=== PATIENT | male | born 1975 | race Caucasian/White ===

== ENCOUNTER 2018-05-18 16:36 | Emergency (ER) | payer OTHER ==
[~2018-05-18] VITALS: Ht 167.6 cm; Wt 132.1 kg
[2018-05-18 16:50] VITALS: TEMP 36.9; Ht 167.6 cm; Wt 132.1 kg
--- NOTE | 2018-05-18 17:09 | DIAGNOSTIC IMAGING REPORT ---
CHEST ONE VIEW PORTABLE CLINICAL HISTORY: Chest pain. COMPARISON STUDY: No previous studies for comparison. FINDINGS: There is evidence for a suspected distal right clavicular resection. Lung volumes are normal. No pneumothorax or pleural effusion is noted. There is no consolidation or evidence for pulmonary edema. Cardiac size is within normal limits. Mediastinal contours are unremarkable. IMPRESSION: No acute cardiopulmonary findings. Electronically signed by: Jay Boston M.D. 05/18/2018 5:08 PM Dictated Date/Time: 05/18/2018 5:07 PM
[2018-05-18] MEDS ORDERED: OPTIRAY 320 IV PRN (17:15)
--- NOTE | 2018-05-18 17:19 | EMERGENCY ROOM VISIT NOTE ---
History Report prepared by Mak: Norma Baxter Under the Supervision of: Dr. Scott Juares M.D. First contact with patient: 16:37 Chief Complaint: SHORTNESS OF BREATH Stated Complaint: DIZZY, SOB, NECK PIAN History of Present Illness The patient is a 42 year old male who presents to the Emergency Room with complaints of constant SOB beginning yesterday. EMS reports they brought the patient from [place], where he arrived 2 hours ago following an admittance to [facility] yesterday evening following a suicide attempt. They note the patient, who is schizophrenic and has a history of suicide attempts, heard a voice telling him to kill himself yesterday. EMS reports he used a dog leash to hang himself from a doorway. They state the patient's feet were off the ground for a time, before he lost consciousness and fell to the ground. The exact time of the hanging is unclear, as the patient does not remember. The patient reports his SOB began following his suicide attempt, as well as a headache, mild chest pain, dizziness, and blurred vision. He notes he did not have these symptoms before the attempt. The patient denies nausea or double vision. He also denies current suicidal or homicidal ideations, and notes he feels depressed. The patient states he is not hearing as many voices as yesterday. He reports he takes Abilify 50 mg and another medication he cannot remember the name of, prescribed by [facility] in [place]. Source of History: patient Onset: yesterday Position: chest Quality: other (SOB) Timing: constant Associated Symptoms: + headache, + chest pain (mild), No nausea Note: Associated symptom: dizziness, blurred vision, feeling depressed. Denies: double vision, suicidal or homicidal ideations Review of Systems See HPI for pertinent positives and negatives. A total of ten systems were reviewed and were otherwise negative. Past Medical & Surgical Medical Problems: (1) Schizophrenia Family History No pertinent family history stated. Social History Smoking Status: Never Smoker Marital Status: Housing Status: lives with significant other Current/Historical Medications Scheduled Aripiprazole (Abilify), 15 MG PO DAILY Cyclobenzaprine Hcl (Flexeril), 10 MG PO TID Gabapentin (Neurontin), 300 MG PO TID Lamotrigine (Lamictal), 100 MG PO DAILY Sumatriptan Succinate (Imitrex), 50 MG PO PRN Trazodone Hcl (Trazodone), 50 MG PO HS Scheduled PRN Ibuprofen (Motrin), 600 MG PO Q6H PRN for Pain Meclizine Hcl (Meclizine Hcl), 25 MG PO TID PRN for Dizziness Allergies Coded Allergies: No Known Allergies (Unverified , 05/18/18) Physical Exam Vital Signs Date Time Temp Pulse Resp B/P (MAP) Pulse Ox O2 Delivery O2 Flow Rate FiO2 05/18/18 23:28 78 18 146/99 99 Room Air 05/18/18 21:39 72 18 148/92 99 Room Air 05/18/18 19:18 79 18 135/78 100 Room Air 05/18/18 18:29 71 18 152/89 98 Room Air 05/18/18 18:26 98 Room Air 05/18/18 16:58 77 05/18/18 16:50 36.9 79 18 166/110 99 Room Air 05/18/18 16:42 98 Room Air Physical Exam GENERAL: Awake, alert, well-appearing, in no distress HENT: Normocephalic, atraumatic. Oropharynx unremarkable. EYES: Normal conjunctiva. Sclera non-icteric. NECK: Supple. No nuchal rigidity. FROM. No JVD. RESPIRATORY: Clear to auscultation. CARDIAC: Regular rate, normal rhythm. Extremities warm and well perfused. Pulses equal. ABDOMEN: Soft, non-distended. No tenderness to palpation. No rebound or guarding. No masses. RECTAL: Deferred. MUSCULOSKELETAL: Chest examination reveals no tenderness. The back is symmetrical on inspection without obvious abnormality. There is no CVA tenderness to palpation. No joint edema. LOWER EXTREMITIES: Calves are equal size bilaterally and non-tender. No edema. No discoloration. NEURO: Normal sensorium. No sensory or motor deficits noted. Apparent difficulty with finger to nose, albeit does not correct even when touching his cheek. SKIN: No rash or jaundice noted. Medical Decision & Procedures ER Provider Diagnostic Interpretation: Radiology results as stated below per my review and radiologist interpretation: CHEST ONE VIEW PORTABLE CLINICAL HISTORY: Chest pain. COMPARISON STUDY: No previous studies for comparison. FINDINGS: There is evidence for a suspected distal right clavicular resection. Lung volumes are normal. No pneumothorax or pleural effusion is noted. There is no consolidation or evidence for pulmonary edema. Cardiac size is within normal limits. Mediastinal contours are unremarkable. IMPRESSION: No acute cardiopulmonary findings. Electronically signed by: Jay Boston M.D. 05/18/2018 5:08 PM Dictated Date/Time: 05/18/2018 5:07 PM NECK ANGIO WITH CONTRAST, ANGIOGRAPHY HEAD COMBO CLINICAL HISTORY: 42 years-old Male with presents with acute blurred vision and dizziness status post attempted hanging.. COMPARISON STUDY: CTA head of same day TECHNIQUE: Following the IV administration of 115 of Optiray 320, CT angiogram of the head and neck was performed from the aortic arch to the skull base. Images are reviewed in the axial, sagittal, and coronal planes. Additional noncontrast head CT also obtained. 3-D MIPS images are created and assessed. IV contrast was administered without complication. All measurements were calculated based on NASCET criteria. A dose lowering technique was utilized adhering to the principles of ALARA. CT DOSE: 1049.50 mGy.cm FINDINGS: CT HEAD: No acute intracranial hemorrhage, midline shift, territorial infarct, abnormal extra-axial collections, hydrocephalus or intracranial mass. No calvarial fracture. Mastoid air cells and middle ear cavities are generally clear. Soft tissues and orbits are within normal limits. CTA HEAD AND NECK: Three-vessel morphology of the aortic arch. The imaged bilateral subclavian arteries appear patent. The bilateral common and internal carotid arteries are widely patent and within normal limits. The bilateral middle and anterior cerebral arteries are widely patent. Anterior communicating artery is patent and within normal limits. Cerebral venous sinuses appear patent and within normal limits. The vertebral arteries appear to be codominant and are widely patent and unremarkable. The vertebral arterial dissection. The basilar and bilateral posterior cerebral arteries are widely patent and unremarkable. There is no aneurysm, dissection, high-grade stenosis or proximal branch occlusion. Imaged lung apices appear clear. Soft tissues and thyroid appear to be within normal limits. Prominent nonenlarged level 1 lymph nodes measure up to 1 cm in short axis. Mild prominence about the bilateral palatine tonsils. Airway appears patent. Mild loss with complete opacification of the right maxillary sinus. Moderate mucosal thickening of the left maxillary sinus. The remaining paranasal sinuses are generally clear. Periapical cyst with cortical dehiscence involves the right maxillary first bicuspid, image 244 series 4. No associated inflammatory changes or soft tissue abscess. Multiple additional dental caries are noted. Mild intervertebral disc space narrowing at C6-C7 with posterior disc osteophyte complex formation at this level. No acute cervical spine fracture or subluxation identified. Transversely oriented lucency about the left hyoid bone, image 157 series 4 may reflect acute nondisplaced fracture. IMPRESSION: 1. Unremarkable CTA of the head and neck without aneurysm, dissection, high-grade stenosis or proximal branch occlusion. 2. Lucency of the left hyoid bone suggests acute nondisplaced fracture considering patient history of recent hanging injury. 3. Paranasal sinus disease and multifocal odontogenic disease as detailed above. 4. Mildly enlarged level I lymph nodes are nonspecific and may be reactive. The above report was generated using voice recognition software. It may contain grammatical, syntax or spelling errors. Electronically signed by: Robe Beck M.D. 05/18/2018 7:22 PM Dictated Date/Time: 05/18/2018 7:08 PM NECK ANGIO WITH CONTRAST, ANGIOGRAPHY HEAD COMBO CLINICAL HISTORY: 42 years-old Male with presents with acute blurred vision and dizziness status post attempted hanging.. COMPARISON STUDY: CTA head of same day TECHNIQUE: Following the IV administration of 115 of Optiray 320, CT angiogram of the head and neck was performed from the aortic arch to the skull base. Images are reviewed in the axial, sagittal, and coronal planes. Additional noncontrast head CT also obtained. 3-D MIPS images are created and assessed. IV contrast was administered without complication. All measurements were calculated based on NASCET criteria. A dose lowering technique was utilized adhering to the principles of ALARA. CT DOSE: 1049.50 mGy.cm FINDINGS: CT HEAD: No acute intracranial hemorrhage, midline shift, territorial infarct, abnormal extra-axial collections, hydrocephalus or intracranial mass. No calvarial fracture. Mastoid air cells and middle ear cavities are generally clear. Soft tissues and orbits are within normal limits. CTA HEAD AND NECK: Three-vessel morphology of the aortic arch. The imaged bilateral subclavian arteries appear patent. The bilateral common and internal carotid arteries are widely patent and within normal limits. The bilateral middle and anterior cerebral arteries are widely patent. Anterior communicating artery is patent and within normal limits. Cerebral venous sinuses appear patent and within normal limits. The vertebral arteries appear to be codominant and are widely patent and unremarkable. The vertebral arterial dissection. The basilar and bilateral posterior cerebral arteries are widely patent and unremarkable. There is no aneurysm, dissection, high-grade stenosis or proximal branch occlusion. Imaged lung apices appear clear. Soft tissues and thyroid appear to be within normal limits. Prominent nonenlarged level 1 lymph nodes measure up to 1 cm in short axis. Mild prominence about the bilateral palatine tonsils. Airway appears patent. Mild loss with complete opacification of the right maxillary sinus. Moderate mucosal thickening of the left maxillary sinus. The remaining paranasal sinuses are generally clear. Periapical cyst with cortical dehiscence involves the right maxillary first bicuspid, image 244 series 4. No associated inflammatory changes or soft tissue abscess. Multiple additional dental caries are noted. Mild intervertebral disc space narrowing at C6-C7 with posterior disc osteophyte complex formation at this level. No acute cervical spine fracture or subluxation identified. Transversely oriented lucency about the left hyoid bone, image 157 series 4 may reflect acute nondisplaced fracture. IMPRESSION: 1. Unremarkable CTA of the head and neck without aneurysm, dissection, high-grade stenosis or proximal branch occlusion. 2. Lucency of the left hyoid bone suggests acute nondisplaced fracture considering patient history of recent hanging injury. 3. Paranasal sinus disease and multifocal odontogenic disease as detailed above. 4. Mildly enlarged level I lymph nodes are nonspecific and may be reactive. The above report was generated using voice recognition software. It may contain grammatical, syntax or spelling errors. Electronically signed by: Robe Beck M.D. 05/18/2018 7:22 PM Dictated Date/Time: 05/18/2018 7:08 PM Laboratory Results 05/18/18 17:04 Red Blood Count 5.40, Mean Corpuscular Volume 83.9, Mean Corpuscular Hemoglobin 29.1, Mean Corpuscular Hemoglobin Concent 34.7, Mean Platelet Volume 9.9, Neutrophils (%) (Auto) 66.7, Lymphocytes (%) (Auto) 24.2, Monocytes (%) (Auto) 8.8, Eosinophils (%) (Auto) 0.0, Basophils (%) (Auto) 0.0, Neutrophils # (Auto) 6.01, Lymphocytes # (Auto) 2.18, Monocytes # (Auto) 0.79, Eosinophils # (Auto) 0.00, Basophils # (Auto) 0.00 05/18/18 17:04 Test 05/18/18 17:04 05/18/18 18:22 White Blood Count 9.01 K/uL (4.8-10.8) Red Blood Count 5.40 M/uL (4.7-6.1) Hemoglobin 15.7 g/dL (14.0-18.0) Hematocrit 45.3 % (42-52) Mean Corpuscular Volume 83.9 fL (80-100) Mean Corpuscular Hemoglobin 29.1 pg (25-34) Mean Corpuscular Hemoglobin Concent 34.7 g/dl (32-36) Platelet Count 189 K/uL (130-400) Mean Platelet Volume 9.9 fL (7.4-10.4) Neutrophils (%) (Auto) 66.7 % Lymphocytes (%) (Auto) 24.2 % Monocytes (%) (Auto) 8.8 % Eosinophils (%) (Auto) 0.0 % Basophils (%) (Auto) 0.0 % Neutrophils # (Auto) 6.01 K/uL (1.4-6.5) Lymphocytes # (Auto) 2.18 K/uL (1.2-3.4) Monocytes # (Auto) 0.79 K/uL (0.11-0.59) Eosinophils # (Auto) 0.00 K/uL (0-0.5) Basophils # (Auto) 0.00 K/uL (0-0.2) RDW Standard Deviation 41.7 fL (36.4-46.3) RDW Coefficient of Variation 13.7 % (11.5-14.5) Immature Granulocyte % (Auto) 0.3 % Immature Granulocyte # (Auto) 0.03 K/uL (0.00-0.02) Anion Gap 7.0 mmol/L (3-11) Est Creatinine Clear Calc Drug Dose 136.4 ml/min Estimated GFR () 120.8 Estimated GFR (Non- 104.2 BUN/Creatinine Ratio 12.0 (10-20) Calcium Level 8.8 mg/dl (8.5-10.1) Total Bilirubin 0.5 mg/dl (0.2-1) Direct Bilirubin 0.1 mg/dl (0-0.2) Aspartate Amino Transf (AST/SGOT) 12 U/L (15-37) Alanine Aminotransferase (ALT/SGPT) 29 U/L (12-78) Alkaline Phosphatase 85 U/L (45-117) Troponin I < 0.015 ng/ml (0-0.045) Total Protein 8.6 gm/dl (6.4-8.2) Albumin 3.6 gm/dl (3.4-5.0) Lipase 96 U/L (73-393) Thyroid Stimulating Hormone (TSH) 2.350 uIu/ml (0.300-4.500) Ethyl Alcohol mg/dL < 3.0 mg/dl (0-3) Urine Color YELLOW Urine Appearance CLEAR (CLEAR) Urine pH 8.0 (4.5-7.5) Urine Specific [place] 1.011 (1.000-1.030) Urine Protein NEG (NEG) Urine Glucose (UA) NEG (NEG) Urine Ketones NEG (NEG) Urine Occult Blood NEG (NEG) Urine Nitrite NEG (NEG) Urine Bilirubin NEG (NEG) Urine Urobilinogen NEG (NEG) Urine Leukocyte Esterase NEG (NEG) Urine Opiates Screen NEG (NEG) Urine Methadone, Qualitative NEG (NEG) Urine Barbiturates NEG (NEG) Urine Phencyclidine (PCP) Level NEG (NEG) Ur Amphetamine/Methamphetamine NEG (NEG) MDMA (Ecstasy) Screen NEG (NEG) Urine Benzodiazepines Screen NEG (NEG) Urine Cocaine Metabolite NEG (NEG) Urine Marijuana (THC) NEG (NEG) Laboratory results reviewed by me Medications Administered Medications (Trade) Dose Ordered Sig/Geo Route Start Time Stop Time Status Last Admin Dose Admin Sodium Chloride 1,000 ml @ 999 mls/hr Q1H1M STAT IV 05/18/18 17:32 05/18/18 18:32 DC 05/18/18 17:32 999 MLS/HR Meclizine HCl (Antivert Tab) 25 mg NOW STAT PO 05/18/18 17:32 05/18/18 17:33 DC 05/18/18 17:32 25 MG ECG Per My Interpretation Indication: chest pain Rate (beats per minute): 69 Rhythm: normal sinus Findings: no acute ischemic change, other (normal axis) ED Course 1637: The patient was evaluated in room C7. A complete history and physical exam was performed. 1724: I reviewed the case with Dr. De La Garza, [place] psychiatrist. 2039: I discussed the case with Dr. Sevilla, ENT, who says if no displacement or other evidence of trauma, the patient's fracture does not require intervention. 2130: I reevaluated the patient. Discussed results and discharge instructions: he verbalized understanding and agreement. The patient is ready for discharge. Medical Decision I reviewed the patient's past medical history, medications, and the nursing notes as described above. Differential diagnosis: Etiologies such as cardiac ischemia, aortic dissection, pulmonary embolism, pneumonia, pneumothorax, musculoskeletal, infections, pericarditis, myocarditis , esophageal rupture, gastrointestinal, as well as others were entertained. The patient is a 42-year-old gentleman with a past medical history of schizophrenia and suicidal ideation with prior suicide attempts presents emergency department from the [facility] after being admitted there for suicide attempt last night with a dog leash subsequently medically cleared at some very ED however now sent for evaluation given complaint of persistent dizziness and blurred vision, with chest pain and shortness of breath per hpi. On arrival the patient is well-appearing in no acute distress, afebrile stable vital signs. On exam the patient is neuro intact although does appear to demonstrate poor effort as when performing finger to nose he has bleeding past pointing and inability to touch his nose but does not attempt to correct this even when knowingly touching his cheek. Neck does not demonstrate any ecchymosis or crepitus therefore unlikely to have had any significant near hanging episode. Patient however only had a x-ray at [facility]. I discussed the case with Dr. De La Garza, physician at the [facility], and we agree that we will perform CTA to definitively exclude any vascular injury that may have occurred from a attempted hanging. CTA largely unremarkable without vascular injury. However, there was question of nondisplaced left hyoid fx given the patient's hanging attempt. Given that the patient complains of right sided neck pain, and clinically has no evidence of trauma to his neck, and has no difficulty with swallowing or breathing, findings unlikely to be of significance. Case was d/w Dr. Davis, ENT on-call, who reviewed the images and agree no further evaluation/management required. Labs unremarkable. Patient continued to be well- appearing through his ED observation. Patient medically cleared. Patient transferred back to the [facility] for management of his SI and suicide attempt. Medication Reconcilliation Current Medication List: was personally reviewed by me Blood Pressure Screening Patient's blood pressure: Elevated blood pressure Blood pressure disposition: Elevated BP felt to be situational Consults Time Called: 1719 Consulting Physician: Dr. De La Garza, [place] psychiatrist Returned Call: 1724 1724: I reviewed the case with Dr. De La Garza, [place] psychiatrist Additional Consults: Time Called: 2029 Consulted Physician: Dr. Sevilla, ENT Returned Call: 2039 Additional Comments: 2039: I discussed the case with Dr. Sevilla, ENT, who says if no displacement or other evidence of trauma, the patient's fracture does not require intervention. Impression Primary Impression: Shortness of breath Additional Impression: Vertigo Scribe Attestation The scribe's documentation has been prepared under my direction and personally reviewed by me in its entirety. I confirm that the note above accurately reflects all work, treatment, procedures, and medical decision making performed by me. Departure Information Dispostion Home / Self-Care Prescriptions Meclizine Hcl (MECLIZINE HCL) 25 Mg Tab 25 MG PO TID Y for Dizziness, #21 TAB Prov: Scott Juares M.D. 05/18/18 Forms HOME CARE DOCUMENTATION FORM, IMPORTANT VISIT INFORMATION Patient Instructions ED Dyspnea Shortness of Breath, ED Vertigo Unspecified, My [facility] Additional Instructions Please follow up with your providers at the [facility] for re-evaluation. You were evaluated for your symptoms of dizziness and shortness of breath. Otherwise, your exam, EKG, chest xray, lab results, CT scan of your head and neck with contrast did not show signs of an emergent condition at this time. Of note, there was a question of a left nondisplaced fracture of your hyoid bone , which may be related to your attempted hanging. However, there is no intervention required given your exam is reassuring and there were no other traumatic findings on CT. Meclizine as needed for vertigo/dizziness. Drink plenty of fluids to ensure hydration. Return to the emergency department for worsening symptoms as described in the accompanying instructions. Problem Qualifiers
[2018-05-18] MEDS ORDERED: MECLIZINE HCL 25 MG TAB PO STA (17:32)
[2018-05-18] MEDS ORDERED: SODIUM CHLORIDE 0.9% 1000ML 1,000 ML IV STA (17:32)
[2018-05-18 17:39] LABS: HEMATOCRIT 45.3 % (42-52); HEMOGLOBIN 15.7 g/dL (14.0-18.0); IG# 0.03 K/uL (0.00-0.02); LYMPH % 24.2 %; LYMPH ABS # 2.18 K/uL (1.2-3.4); MEAN CELL VOLUME 83.9 fL (80-100); MEAN CORPUSCULAR HEMOGLOBIN 29.1 pg (25-34); MEAN CORPUSCULAR HGB CONC 34.7 g/dl (32-36); MEAN PLATELET VOLUME 9.9 fL (7.4-10.4); MONO % 8.8 %; MONO ABS # 0.79 K/uL (0.11-0.59); NEUT % 66.7 %; NEUT ABS # 6.01 K/uL (1.4-6.5); PLATELET COUNT 189 K/uL (130-400); RED CELL DISTRIBUTION WIDTH CV 13.7 % (11.5-14.5); RED CELL DISTRIBUTION WIDTH SD 41.7 fL (36.4-46.3); WHITE BLOOD COUNT 9.01 K/uL (4.8-10.8)
[2018-05-18] MEDS ORDERED: TRAZ50TA35 PO (17:48)
[2018-05-18] MEDS ORDERED: LAMO100T16 PO (17:48)
[2018-05-18] MEDS ORDERED: SUMA50TA15 PO (17:48)
[2018-05-18] MEDS ORDERED: IBUP-1450 PO (17:48)
[2018-05-18] MEDS ORDERED: ABL/15 PO (17:48)
[2018-05-18] MEDS ORDERED: GABA-113 PO (17:48)
[2018-05-18] MEDS ORDERED: CYCL10TA6 PO (17:48)
[2018-05-18 18:12] LABS: ALBUMIN 3.6 gm/dl (3.4-5.0); ALKALINE PHOSPHATASE 85 U/L (45-117); ALT/SGPT 29 U/L (12-78); AST/SGOT 12 U/L (15-37); BLOOD UREA NITROGEN 11 mg/dl (7-18); CALCIUM 8.8 mg/dl (8.5-10.1); CARBON DIOXIDE 26 mmol/L (21-32); GLUCOSE 111 mg/dl (70-99); LIPASE 96 U/L (73-393); POTASSIUM 3.5 mmol/L (3.5-5.1); SODIUM 139 mmol/L (136-145); TOTAL PROTEIN 8.6 gm/dl (6.4-8.2)
[2018-05-18 18:26] VITALS: O2SAT 98
--- NOTE | 2018-05-18 19:23 | DIAGNOSTIC IMAGING REPORT ---
NECK ANGIO WITH CONTRAST, ANGIOGRAPHY HEAD COMBO CLINICAL HISTORY: 42 years-old Male with presents with acute blurred vision and dizziness status post attempted hanging.. COMPARISON STUDY: CTA head of same day TECHNIQUE: Following the IV administration of 115 of Optiray 320, CT angiogram of the head and neck was performed from the aortic arch to the skull base. Images are reviewed in the axial, sagittal, and coronal planes. Additional noncontrast head CT also obtained. 3-D MIPS images are created and assessed. IV contrast was administered without complication. All measurements were calculated based on NASCET criteria. A dose lowering technique was utilized adhering to the principles of ALARA. CT DOSE: 1049.50 mGy.cm FINDINGS: CT HEAD: No acute intracranial hemorrhage, midline shift, territorial infarct, abnormal extra-axial collections, hydrocephalus or intracranial mass. No calvarial fracture. Mastoid air cells and middle ear cavities are generally clear. Soft tissues and orbits are within normal limits. CTA HEAD AND NECK: Three-vessel morphology of the aortic arch. The imaged bilateral subclavian arteries appear patent. The bilateral common and internal carotid arteries are widely patent and within normal limits. The bilateral middle and anterior cerebral arteries are widely patent. Anterior communicating artery is patent and within normal limits. Cerebral venous sinuses appear patent and within normal limits. The vertebral arteries appear to be codominant and are widely patent and unremarkable. The vertebral arterial dissection. The basilar and bilateral posterior cerebral arteries are widely patent and unremarkable. There is no aneurysm, dissection, high-grade stenosis or proximal branch occlusion. Imaged lung apices appear clear. Soft tissues and thyroid appear to be within normal limits. Prominent nonenlarged level 1 lymph nodes measure up to 1 cm in short axis. Mild prominence about the bilateral palatine tonsils. Airway appears patent. Mild loss with complete opacification of the right maxillary sinus. Moderate mucosal thickening of the left maxillary sinus. The remaining paranasal sinuses are generally clear. Periapical cyst with cortical dehiscence involves the right maxillary first bicuspid, image 244 series 4. No associated inflammatory changes or soft tissue abscess. Multiple additional dental caries are noted. Mild intervertebral disc space narrowing at C6-C7 with posterior disc osteophyte complex formation at this level. No acute cervical spine fracture or subluxation identified. Transversely oriented lucency about the left hyoid bone, image 157 series 4 may reflect acute nondisplaced fracture. IMPRESSION: 1. Unremarkable CTA of the head and neck without aneurysm, dissection, high-grade stenosis or proximal branch occlusion. 2. Lucency of the left hyoid bone suggests acute nondisplaced fracture considering patient history of recent hanging injury. 3. Paranasal sinus disease and multifocal odontogenic disease as detailed above. 4. Mildly enlarged level I lymph nodes are nonspecific and may be reactive. The above report was generated using voice recognition software. It may contain grammatical, syntax or spelling errors. Electronically signed by: Robe Beck M.D. 05/18/2018 7:22 PM Dictated Date/Time: 05/18/2018 7:08 PM
[2018-05-18] MEDS ORDERED: MECL1TAB42 PO (21:26)
[2018-05-18 23:28] VITALS: BP 146/99; PULSE 78; O2SAT 99
== END 2018-05-18 23:30 | disposition home or self-care (01) ==
LOC: C.EDC 16:38
DX: R42 Dizziness and giddiness (principal); R06.02 Shortness of breath; T71.162A Asphyxiation due to hanging, intentional self-harm, initial encounter; X83.8XXA Intentional self-harm by other specified means, initial encounter; F32.89 Other specified depressive episodes; Z79.899 Other long term (current) drug therapy